=== PATIENT | female | born 1940 | race Caucasian/White ===

== ENCOUNTER → 2019-07-19 10:58 | Outpatient (CLI) | payer SELFPAY ==
--- NOTE | 2019-07-19 11:09 | CT_ITS ---
PROCEDURE: CT HEART W CALCIUM SCORE CLINICAL HISTORY: SCREENING COMPARISON: No exams were available for comparison TECHNIQUE: Axial images obtained with sagittal and coronal reformats. All CT scans at the facility use one or more dose reduction, viz: automated exposure control, ma/kV adjustment per patient size (including targeted exams where dose is matched to indication, i.e. head), or iterative reconstruction technique. FINDINGS: The coronary artery calcium score is 507 indicating extensive plaque burden with very high cardiovascular disease risk Other findings include a moderate-sized hiatal hernia. There is a noncalcified 3 mm nodule in the left lower lobe laterally and anteriorly. A noncalcified 4-5 mm nodules present in the left lung base posteriorly. IMPRESSION: 1. Extensive plaque burden with very high cardiovascular disease risk 2. 3 and 5 mm left lower lobe nodules. Consider six-month CT follow-up 3. Hiatal hernia Dictated by: Everton Acosta MD 07/19/2019 21:55 Signed by: <Electronically signed by Everton Acosta MD in [place]> 07/19/2019 21:55
== END ==
PROVIDERS: PCP Family Medicine; Visit Provider Internal Medicine Cardiovascular Disease
DX: Z13.6 Encounter for screening for cardiovascular disorders (principal)
CPT/HCPCS: 75571

== ENCOUNTER → 2020-07-26 12:37 | Outpatient (CLI) | payer MEDICARE, SELFPAY ==
[2020-07-26 14:55] LABS: Coronavirus 19 IgG Antibody Negative (Negative); Coronavirus 19 IgM Antibody Negative (Negative)
== END ==
PROVIDERS: Visit Provider Family Medicine
DX: Z01.84 Encounter for antibody response examination (principal); R53.83 Other fatigue; R61 Generalized hyperhidrosis
CPT/HCPCS: 36415; 86328; 86618